=== PATIENT | male | born 1990 ===

== ENCOUNTER 2019-01-29 12:50 | Emergency (ER) | payer SELFPAY ==
[~2019-01-29] VITALS: Ht 172.7 cm; Wt 83.0 kg
[2019-01-29] MEDS ORDERED: ASPIRIN 81MG TABLET PO ONE (14:15)
[2019-01-29] MEDS ORDERED: LORAZEPAM 1MG TABLET PO ONE (14:15)
[2019-01-29] MEDS ORDERED: ACETAMINOPHEN 500MG TABLET PO ONE (14:15)
[2019-01-29 14:36] LABS: BASOPHILS % 0.5 % (0.0-2.0); EOSINOPHILS % 0.4 % (0.0-5.0); HEMATOCRIT. 41.5 % (42.0-52.0); HEMOGLOBIN. 14.2 g/dL (14.0-18.0); LYMPHOCYTES % 16.3 % (20.0-50.0); MEAN CORPUSCULAR HEMOGLOBIN 30.5 pg (28.0-32.0); MEAN CORPUSCULAR VOLUME 89.3 fL (80.0-94.0); MONOCYTES % 6.7 % (2.0-8.0); NEUTROPHILS % 76.1 % (40.0-76.0); PLATELET 327 x1000/uL (130-400); RED BLOOD CELL COUNT 4.65 mill/uL (4.7-6.1)
[2019-01-29 14:42] LABS: CHLORIDE 104 mEq/L (98-107)
[2019-01-29 16:32] VITALS: BP 132/78
== END 2019-01-29 16:32 | disposition home or self-care (01) ==
LOC: ER 12:50
DX: R07.89 Other chest pain (principal); F43.0 Acute stress reaction; R03.0 Elevated blood-pressure reading, without diagnosis of hypertension; Z63.4 Disappearance and death of family member
CPT/HCPCS: 36415; 71045; 80053; 84484; 85025; 93005; 99284; Z7610